=== PATIENT | female | born 1975 | race Caucasian/White ===

== ENCOUNTER 2023-04-02 13:26 | Outpatient (AMB) | payer MEDICARE, OTHER, SELFPAY ==
[2023-04-02 13:30] VITALS: BP 126/72; PULSE 97; TEMP 36.3; O2SAT 100; BMI 26.4
--- NOTE | 2023-04-02 13:30 | MHC.OFFVIS ---
Intake Vital Signs 04/02/23 13:30 Height 5 ft Weight 135 lb 2.294 oz BMI 26.4 BP 126/72 Blood Pressure Location Rt brachial Position Sitting Pulse 97 Pulse Source Pulse Oximeter Temp 97.3 F Temp Source Skin Pulse Oximetry (%) 100 Intake Visit Reasons: RA Intake Note: Pt seen today for RA follow up. Last saw Dr Lipscomb approx 4-5 years ago. 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 Required: No Accompanied by: Self / Same As Patient Allergies morphine Adverse Reaction (Severe, Verified 04/02/23 13:32) Stomach cramp, Hives Medication List - Last Reconciled 04/02/23 by Derrick Lipscomb MD acyclovir 400 mg PO TID amlodipine 5 mg PO DAILY [id number] 50-325-40 mg 1 tab PO Q4H PRN cholecalciferol (vitamin D3) 50 mcg PO DAILY clonidine 1 patch topical QWEEK dexamethasone mg PO fluticasone propionate 50 mcg/actuation sprays intranasal metoprolol succinate ER 50 mg PO DAILY metoprolol succinate ER 25 mg PO DAILY omeprazole 20 mg PO DAILY prednisone 8 mg PO DAILY sulfamethoxazole-trimethoprim 400-80 mg 1 tab PO DAILY HPI HPI Comments History of Present Illness Details The patient presents for evaluation of shoulder pain. She had been treated by myself about 25 years ago with Enbrel for rheumatoid arthritis. In 2004 she developed lymphadenopathy and was found to have a lymphoma. This was treated with chemotherapy and then an unrelated bone marrow transplant was performed. That did not work well. She received more chemotherapy and then an ablative type transplant. That seemingly has controlled her malignancy but over the ensuing years she did develop significant skin rash problems, GI symptoms, mucosal ulcerations, and LFT elevations consistent with llbxi-ipthgk-lpek disease. 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 That prednisone was discontinued she says about a year ago. She felt a bit worse and changed oncologists. They decided to put her back on prednisone initially at 10 mg daily and then 8 mg daily. In general she has let felt less stiffness with the prednisone use. She does not recall any swelling of the joints in the past 20 years. She developed more shoulder pain about a year ago. There was no injury involved. This was more on the right than the left. I do not have the records to review but she recalls that she was sent to Orthopedics, had MRI scanning, and a corticosteroid injection. She feels that has helped considerably with improving her range of motion. At the MRI they were worried about avascular necrosis but they did not find that. She was told she did have a partial tear in 2 tendons in the shoulder. She is on medications for hypertension. She uses a dexamethasone mouthwash for oral ulcers. She is on trimethoprim sulfa and acyclovir prophylactically. [facility] Medical History (Updated 04/02/23 @ 19:58 by Derrick Lipscomb MD) Other gastritis with bleeding CMV (cytomegalovirus) infection Pkmbx-hfidmk-gvvt disease, unspecified Chronic kidney disease, unspecified Vulvodynia Thyroid nodule Chronic kidney disease, stage 3a Migraine GERD (gastroesophageal reflux disease) Hypertension Adult T-cell lymphoma Seronegative rheumatoid arthritis Surgical History Hx of tubal ligation Hx of splenectomy History of delivery Hx of cataract surgery H/O stem cell transplant Family History (Updated 04/02/23 @ 13:33 by MAKI Zelaya) Mother History of prediabetes Father Medical history unknown Social History (Updated 04/02/23 @ 13:33 by MAKI Zelaya) Household Members: Spouse and Children Alcohol intake: current Alcohol intake frequency: a few times a week Current occupational status: unemployed Review of Systems Const Details: Negative for appetite change, weight change, fever, chills, malaise and fatigue Eyes Details: Negative for vision change, dry eyes,headaches and dizziness ENT Details: Occasional mucosal inflammation attributed to GVH. Presently negative for hearing change, tinnitus, oral ulcer, nose bleeds and oral dryness. Card Details: Negative chest pain, edema and syncope Resp Details: Negative for SOB, cough and wheezing GI Details: Negative indigestion/heartburn, nausea, abdominal pain, bowel changes, diarrhea, constipation and bloody stool. Details: Negative for dysuria, hematuria, nocturia, decreased force/flow and genital discharge Skin/Breast Details: Negative for itching, rash, hives, Raynaud's symptoms, sun sensitivity, and skin cancer Neuro Details: She thinks she has some word-finding difficulty at times. She says she has had an MRI and neuropsychiatric testing is pending. Negative for epilepsy, palsy, stroke, changes in speech, tingling and weakness Psych Details: Negative for anxiety, depression and stress Endo Details: Negative for polyuria and polydypsia João/Lymph Details: Negative for excessive bruising or bleeding. Physical Exam Vital Signs: Last Vital Signs Temp 97.3 F 04/02/23 13:30 Pulse 97 04/02/23 13:30 BP 126/72 04/02/23 13:30 Pulse Ox 100 04/02/23 13:30 BMI result Body Mass Index 26.4 APPEARANCE: Patient in no acute distress EYES no redness, pupils equal and reactive to light, eyelids normal EARS: External ear normal, canal clear and tympanic membrane normal. NOSE/SINUS: Airflow through both nares, no nasal discharge, no bleeding THROAT: Oral mucosa moist, no ulcerations NECK: No thyromegaly or masses, no adenopathy, trachea midline. HEART: Regulrar rhythm, S1-S2 heard, no murmurs, rubs or gallops. LUNG: Clear to percussion and auscultation ABD: Normal bowel sounds, no organomegaly, masses or tenderness. EXTREMITIES: No edema, no calf tenderness, normal peripheral pulses. NEURO: Oriented and alert x3. No focal weakness. Reflexes symmetric. Gait normal. SKIN: No inflammatory or neoplastic lesions. Normal color and turgor JOINT EXAM:?? Cervical Spine:.? Full range of motion without pain; no tenderness. Thoracic Spine:.? No scoliosis.? No tenderness on palpation. Lumbar Spine:.? Alignment normal.? Full range of motion without pain, no tenderness. Chest Wall:.? No tenderness, swelling, increased warmth or erythema. Hands:.? There is pain-free range of motion of the fingers. She has some swan necking deformity at the PIP joints. However that PIP's are not swollen or tender. In the flexed position the hands look normal. 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 There is no soft tissue swelling, triggering, thenar atrophy or sensory loss. Dell is no objective signs of Raynaud's phenomenon. Wrists:.? She has pain-free flexion and extension to 75 degrees. There is no tenderness, swelling, increased warmth or erythema. Elbows:. Normal pain-free range of motion without tenderness, swelling, increased warmth or erythema. Shoulders: Right: Mild pain with abduction at 150 degrees or with extremes of rotation. There is some minimal anterior tenderness without abductor weakness, adenopathy or swelling. Left:?? Full range of motion with minimal discomfort at the extremes of abduction. No adenopathy, tenderness, weakness, swelling, increased warmth or erythema. Hips:.? Full range of motion without pain. Hip bursa:.? No tenderness. Knees:.?? Normal pain-free range of motion with mild patellofemoral crepitus. There is no effusion, tenderness, swelling, increased warmth or erythema. Ankles:.? Normal pain-free range of motion without tenderness, swelling, increased warmth or erythema. Feet:.? Normal pain-free range of motion without tenderness, swelling, increased warmth or erythema. Tender points:.? Mild tenderness to digital palpation at the lateral epicondyle, greater trochanter area bilaterally. ? Assessment & Plan Assessment & Plan (1) Adult T-cell lymphoma: Comment: 2004 RX CHOP; 2005 gamcitabine and [facility]; unrelated transplant 04/13; more chemo then ablative transplant around 2007. Followed by [facility] Code(s): C91.50 - Adult T-cell lymphoma/leukemia ([id number]) not having achieved remission (2) Tendonitis of both rotator cuffs: Code(s): M75.81 - Other shoulder lesions, right shoulder; M75.82 - Other shoulder lesions, left shoulder Plan She has a history of rheumatoid arthritis but nothing on exam right now that was suggest active inflammatory disease. She has the deformity at the PIP joints consistent with burnt out inflammatory arthritis. The right shoulder symptoms suggest some rotator cuff impingement and subsequent tendinitis and small tears. The shoulder symptoms have improved with time and local injection. I do not think the shoulder pain is a result of her transplant, its treatment, or an active underlying inflammatory arthropathy for now. She might get better function if she had some physical therapy and she seems to agree to that. She will talk to her sister who is a PT and get back to me with where she wants to do the 5th physical therapy. I do not think for now we need to have follow-up unless she thinks symptoms change in which case she can give us a call. Coding Level of Care Code New Pt Level 3 (94446) Diagnoses Adult T-cell lymphoma C91.50 Tendonitis of both rotator cuffs M75.81; M75.82
== END 2023-04-02 14:51 | disposition home or self-care (01) ==
PROVIDERS: PCP Internal Medicine; Visit Provider Internal Medicine Rheumatology
DX: C91.50 Adult T-cell lymphoma/leukemia (HTLV-1-associated) not having achieved remission (principal); M75.81 Other shoulder lesions, right shoulder; M75.82 Other shoulder lesions, left shoulder
CPT/HCPCS: 99203; 99213

== ENCOUNTER → 2023-04-02 13:26 | Outpatient (BNVA) | payer MEDICARE, OTHER, SELFPAY | PROVIDERS: PCP Internal Medicine; Visit Provider Internal Medicine Rheumatology ==